=== PATIENT | female | born 1995 | race Caucasian/White ===

== ENCOUNTER 2020-03-22 10:09 | Emergency (ER) | payer MEDICAID ==
[2020-03-22] MEDS ORDERED: MORPHINE SULFATE 2 MG INJ IV ONE (10:41)
[2020-03-22] MEDS ORDERED: Sodium Chloride 0.9% 1000 ML 1,000 ML IV STA (10:41)
[2020-03-22] MEDS ORDERED: Ativan 2 MG/1 ML VIAL IV STA (10:50)
[2020-03-22] MEDS ORDERED: Sodium Chloride 0.9% 1000 ML 1,000 ML ONE (10:51)
[2020-03-22] MEDS ORDERED: Ativan 2 MG/1 ML VIAL ONE (10:51)
[2020-03-22] MEDS ORDERED: MORPHINE SULFATE 2 MG INJ ONE (10:51)
[2020-03-22 10:59] LABS: Absolute Neutrophil Ct (ANC) 5.89 (1.4-6.9); BASOPHIL % 0.4 % (0.0-0.4); Basophil (Absolute #) 0.04 (0-0.4); Eosinophil % 0.2 % (0.00-5.0); Eosinophil (Absolute #) 0.02 (0-0.5); Hematocrit 40.2 % (35-47); Hemoglobin 13.9 gm/dl (12.0-16.0); Lymphocyte (Absolute #) 2.45 (1.0-4.6); Lymphocytes % 26.5 % (24.0-44.0); Mean Cell Volume 90.5 fl (78-100); Mean Corpuscular Hemoglobin 31.3 pg (26-32); Mean Corpuscular Hgb Concent. 34.6 g/dl (32-36); Mean Platelet Volume 9.7 fl (7.5-11.0); Monocyte (Absolute #) 0.84 (0.0-1.3); Monocytes % 9.1 % (0.0-12.0); Neutrophil % 63.8 % (36.0-66.0); Platelet Count 262 K/mm3 (150-450); Red Blood Count 4.44 M/mm3 (4.1-5.4); Red Cell Distribution Width 12.5 % (11.5-14.0); White Blood Count 9.2 K/mm3 (4.0-10.5)
[2020-03-22 11:09] LABS: ALBUMIN 4.8 g/dL (3.5-5.0); ALKALINE PHOSPHATASE 82 U/L (38-126); ANION GAP 14.7 MEQ/L (5-15); BLOOD UREA NITROGEN 18 mg/dL (7-17); CHLORIDE 106 mmol/L (98-107); Calcium 9.7 mg/dL (8.4-10.2); Carbon Dioxide 22 mmol/L (22-30); Creatinine 1 0.87 mg/dL (0.52-1.04); Glucose 92 mg/dL (74-106); Potassium 4.1 mmol/L (3.5-5.1); SGOT/AST 37 U/L (14-36); SGPT/ALT 19 U/L (0-35); SODIUM 139 mmol/L (137-145); Total Protein 8.5 g/dL (6.3-8.2)
[2020-03-22 11:16] VITALS: BP 128/94; PULSE 110; O2SAT 99
--- NOTE | 2020-03-22 11:26 | ERPHSYRPT ---
- History of Present Illness Time Seen by Provider: 03/22/20 10:30 Source: patient Exam Limitations: no limitations Patient Subjective Stated Complaint: PT states "I went to the dr and they told me it was cellulitis, it did not get any better and I went back and a dr told me it was a brown recluse bit and they appologised. Now I am on all these antibiotics and I recently relapsed and I am really freaked out." Triage Nursing Assessment: Pt presented alert and oriented X 3, skin pwd. Pt ambulates with a limp, pt has abscess noted to right hollis. Slight seepage noted. PT crying and anxious. Physician History: Patient is a 24-year-old female who presents to our ED with complaints of wound to her right leg. Patient believes she was bitten by a brown recluse spider several days ago. Patient is on day 2 of antibiotics. She is on Keflex and Bactrim. Patient states the area of cellulitis has spread in spite of being on antibiotics. Her pain is gotten progressively worse as well. Pain described as an ache that is localized with occasional intermittent shooting sensation down into her foot. Tetanus up-to-date. Patient denies systemic manifestation of infection. No fever. No myalgia. No arthralgia. No nausea or vomiting. Symptoms are mild to moderate in intensity. Palpation to the area involvement worsening symptomology. Pain improved with rest. Patient has a history of hepatitis C however is otherwise healthy per patient Patient voices no other complaints at this time. Timing/Duration: day(s) Quality: other (Ache with shooting sensation down her leg.) Severity: moderate (Proximal third of right leg anterior aspect) Possible Causes: insect bite Associated Symptoms: No difficulty breathing, No fever, No headache, No hives, No numbness, No paresthesia, No sore throat Allergies/Adverse Reactions: No Known Drug Allergies Allergy (Unverified 03/22/20 10:24) Home Medications: Cephalexin Mh 500 mg [Keflex 500 mg] 500 mg PO TID 03/22/20 [History] Mupirocin 1 gm TP DAILY 03/22/20 [History] Sulfamethoxazole/Trimethoprim [Bactrim Ds Tablet] 1 each PO BID 03/22/20 [ History] Hx Tetanus, Diphtheria Vaccination/Date Given: No Hx Influenza Vaccination/Date Given: No Hx Pneumococcal Vaccination/Date Given: No Immunizations Up to Date: Yes Travel Risk - International Travel Have you traveled outside of the country in past 3 weeks: No Have you or anyone close to you been diagnosed with or: No Do your reside in a community with a known COVID-19 case?: Yes If Yes where:: [place] - Coronavirus Screening Has patient experienced Coronavirus symptoms: No - Review of Systems Constitutional: No Symptoms, No Fever, No Chills Eyes: No Symptoms Ears, Nose, & Throat: No Symptoms Respiratory: No Symptoms, No Cough, No Dyspnea Cardiac: No Symptoms, No Chest Pain, No Edema, No Syncope Abdominal/Gastrointestinal: No Symptoms, No Abdominal Pain, No Nausea, No Vomiting, No Diarrhea Genitourinary Symptoms: No Symptoms, No Dysuria Musculoskeletal: No Symptoms, No Back Pain, No Neck Pain Skin: No Symptoms, Cellulitis, Induration, No Rash Neurological: No Symptoms, No Dizziness, No Focal Weakness, No Sensory Changes Psychological: No Symptoms Endocrine: No Symptoms Hematologic/Lymphatic: No Symptoms Immunological/Allergic: No Symptoms All Other Systems: Reviewed and Negative - Past Medical History Pertinent Past Medical History: No - Past Surgical History Past Surgical History: Yes Other Surgical History: finger. kidney stones. cyst. laproscopic - Social History Smoking Status: Current every day smoker How long have you smoked: years Exposure to second hand smoke: Yes Drug Use: methamphetamines, heroin Patient Lives Alone: No - Female History Hx Last Menstrual Period: 03/20/2020 Hx Now: No - Nursing Vital Signs Nursing Vital Signs: Initial Vital Signs Temperature 98.4 F 03/22/20 10:15 Pulse Rate 102 H 03/22/20 10:15 Respiratory Rate 22 03/22/20 10:15 Blood Pressure 132/95 03/22/20 10:15 O2 Sat by Pulse Oximetry 97 03/22/20 10:15 Pain Scale Pain Intensity 8 - Physical Exam General Appearance: no apparent distress, alert, other (Patient is very anxious. ) Eye Exam: PERRL/EOMI, eyes nml inspection Ears, Nose, Throat Exam: normal ENT inspection, pharynx normal, moist mucous membranes Neck Exam: normal inspection, non-tender, supple, full range of motion Respiratory Exam: normal breath sounds, lungs clear, No respiratory distress Cardiovascular Exam: regular rate/rhythm, normal heart sounds Gastrointestinal/Abdomen Exam: soft, No tenderness Pelvic Exam: not done Rectal Exam: deferred Back Exam: normal inspection, normal range of motion, No CVA tenderness, No vertebral tenderness Extremity Exam: normal inspection, normal range of motion, other (There is a 7 cm x 7 cm area of cellulitis at the proximal third of her right leg distal to the tibial tuberosity. At the center of the cellulitis is indurated soft tissue with an abscess. No lymphangitis. No inguinal lymphadenopathy. Extremity pulses are palpable bilaterally equal. PT DP pulses are palpable. Extremities neurovascular intact distally. Compartments are soft. Cap refill less than 2 seconds.), No paralysis, No juli's sign Neurologic Exam: alert, oriented x 3, cooperative, normal mood/affect, sensation nml, No motor deficits Skin Exam: normal color, warm, dry SpO2 Interpretation: normal SpO2: 99 O2 Delivery: Room Air Procedures - Incision and Drainage Site: Right leg anterior aspect proximal third distal to the tibial tuberosity. Anesthesia: 1% lidocaine w/epi cc's of anesthesia: 4 Blade Size: 11 I & D Procedure: betadine prep, culture obtained Results: moderate amount pus (Wound was packed with quarter inch iodoform packing. Wound will close by secondary intention. Patient aware that there will be a small scar post wound healing. Patient understands and and accepts this cosmetic outcome.) - Course Nursing assessment & vital signs reviewed: Yes - CT Exams Lower Extremity CT Interpretation: Tele-radiologist Report (No osteomyelitis no fractures no dislocations. Soft tissue defect from incision and drainage abscess observed on x-ray.) Ordered Tests: Active Orders 24 hr Category Date Time Status IV Insertion STAT Care 03/22/20 10:41 Active LOWER LEG Stat Exams 03/22/20 10:48 Ordered CBC W DIFF Stat Lab 03/22/20 10:25 Completed CMP Stat Lab 03/22/20 10:25 Completed CULTURE,WOUND Stat Lab 03/22/20 10:59 Ordered HCG,QUALITATIVE URINE Stat Lab 03/22/20 Uncollected UA W/RFX UR CULTURE Stat Lab 03/22/20 10:42 Uncollected Medication Summary Discontinued Medications Generic Name Dose Route Start Last Admin Trade Name Freq PRN Reason Stop Dose Admin Sodium Chloride 1,000 mls @ 999 mls/hr 03/22/20 10:41 03/22/20 10:52 Sodium Chloride 0.9% 1000 Ml IV 03/22/20 11:41 999 mls/hr .Q1H1M STA Administration Sodium Chloride Confirm 03/22/20 10:51 Sodium Chloride 0.9% 1000 Ml Administered 03/22/20 10:52 Dose 1,000 mls @ ud .ROUTE .STK-MED ONE Lorazepam 0.5 mg 03/22/20 10:50 03/22/20 10:52 Ativan 2 Mg/1 Ml Vial IV 03/22/20 10:51 0.5 mg ONCE STA Administration Lorazepam Confirm 03/22/20 10:51 Ativan 2 Mg/1 Ml Vial Administered 03/22/20 10:52 Dose 2 mg .ROUTE .STK-MED ONE Morphine Sulfate 2 mg 03/22/20 10:41 03/22/20 10:52 Morphine Sulfate 2 Mg Inj IV 03/22/20 10:42 2 mg STAT ONE Administration Morphine Sulfate Confirm 03/22/20 10:51 Morphine Sulfate 2 Mg Inj Administered 03/22/20 10:52 Dose 2 mg .ROUTE .STK-MED ONE Lab/Rad Data: Laboratory Result Diagrams 03/22/20 10:25 03/22/20 10:25 Laboratory Results 03/22/20 03/22/20 Range/Units 10:25 10:25 WBC 9.2 (4.0-10.5) K/mm3 RBC 4.44 (4.1-5.4) M/mm3 Hgb 13.9 (12.0-16.0) gm/dl Hct 40.2 (35-47) % MCV 90.5 (78-100) fl MCH 31.3 (26-32) pg MCHC 34.6 (32-36) g/dl RDW 12.5 (11.5-14.0) % Plt Count 262 (150-450) K/mm3 MPV 9.7 (7.5-11.0) fl Gran % 63.8 (36.0-66.0) % Eos # (Auto) 0.02 (0-0.5) Absolute Lymphs (auto) 2.45 (1.0-4.6) Absolute Monos (auto) 0.84 (0.0-1.3) Lymphocytes % 26.5 (24.0-44.0) % Monocytes % 9.1 (0.0-12.0) % Eosinophils % 0.2 (0.00-5.0) % Basophils % 0.4 (0.0-0.4) % Absolute Granulocytes 5.89 (1.4-6.9) Basophils # 0.04 (0-0.4) Sodium 139 (137-145) mmol/L Potassium 4.1 (3.5-5.1) mmol/L Chloride 106 (98-107) mmol/L Carbon Dioxide 22 (22-30) mmol/L Anion Gap 14.7 (5-15) MEQ/L BUN 18 H (7-17) mg/dL Creatinine 0.87 (0.52-1.04) mg/dL Estimated GFR > 60.0 ML/MIN Glucose 92 (74-106) mg/dL Calcium 9.7 (8.4-10.2) mg/dL Total Bilirubin 0.70 (0.2-1.3) mg/dL AST 37 H (14-36) U/L ALT 19 (0-35) U/L Alkaline Phosphatase 82 (38-126) U/L Serum Total Protein 8.5 H (6.3-8.2) g/dL Albumin 4.8 (3.5-5.0) g/dL - Progress Progress: improved Progress Note: 03/22/20 11:38 Patient reassessed. Pain significantly improved after pain medication administration and incision and drainage. Patient has a general surgery appointment scheduled for tomorrow. They will reevaluate the wound and assess for progression of infection/cellulitis. Patient to continue Keflex and Bactrim as prescribed previously. Patient advised that if symptoms worsen, if she develops systemic manifestation lymphangitis lymphadenopathy or any new or concerning symptomology patient is to return to the ED immediately. Patient neurovascularly intact distally post procedure. Lab work-up essentially nonremarkable. 03/22/20 11:47 Counseled pt/family regarding: lab results, diagnosis, need for follow-up, rad results - Departure Departure Disposition: Home Clinical Impression: Abscess, Cellulitis Condition: Good Critical Care Time: No Referrals: JUSTIN RAMOS [Primary Care Provider] - Additional Instructions: Discharge/Care Plan ARIC ROBLERO was seen on 03/22/20 in the Emergency Room. The patient was counseled regarding Diagnosis,Lab results, Imaging studies, need for follow up and when to return to the Emergency Room. Prescriptions given: Discharge Note I have spoken with the patient and/or caregivers. I have explained the patient' s condition, diagnosis and treatment plan based on the information available to me at this time. I have answered the patient's and/or caregiver's questions and addressed any concerns. The patient and/or caregivers have as good understanding of the patient's diagnosis, condition and treatment plan as can be expected at this point. The vital signs have been stable. The patient's condition is stable and appropriate for discharge from the emergency department. The patient will pursue further outpatient evaluation with the primary care physician or other designated or consulting physician as outlined in the discharge instructions. The patient and/or caregivers are agreeable to this plan of care and follow-up instructions have been explained in detail. The patient and/or caregivers have received these instruction. The patient/and or caregivers are aware that any significant change in condition or worsening of symptoms should prompt an immediate return to this or the closest emergency department or call 911.
--- NOTE | 2020-03-22 11:45 | XRAY ---
Indication: Swelling and erythema following spider bite. Comparison: None 2 view right lower leg demonstrates mild proximal anterior soft tissue swelling with tiny subcutaneous air. No other bony, articular, or soft tissue abnormalities.
[2020-03-22 11:52] LABS: Appearance SLIGHTLY CLOUDY (CLEAR); Bilirubin NEGATIVE (NEGATIVE); Blood NEGATIVE Ery/ul (0-5); Epithelial Cells RARE /HPF (FEW); Glucose NEGATIVE (NEGATIVE); Ketones NEGATIVE (NEGATIVE); Leukocyte Esterase NEGATIVE (NEGATIVE); Mucus SLIGHT /HPF (NEGATIVE); Nitrite NEGATIVE (NEGATIVE); Protein,Urine Dip NEGATIVE (Negative); Specific Gravity 1.025 (1.005-1.025); Urobilinogen NEGATIVE mg/dL (0-1)
== END 2020-03-22 12:03 | disposition home or self-care (01) ==
LOC: ED 10:09
DX: L02.415 Cutaneous abscess of right lower limb (principal)
CPT/HCPCS: 10060; 36000; 36415; 73590; 80053; 81001; 84703; 85025; 87070; 87077; 87186; 96360; 96374; 96375; 99284; J2060; J2270

== ENCOUNTER 2020-03-24 20:31 | Emergency (ER) | payer MEDICAID ==
--- NOTE | 2020-03-24 21:42 | ERPHSYRPT ---
- History of Present Illness Time Seen by Provider: 03/24/20 21:30 Source: patient Exam Limitations: no limitations Patient Subjective Stated Complaint: pt states that she was in the er a couple days ago, pt states that she has packing in her wound to her rt hollis, pt states that she is unable to pull it out, pt states that she has appointment with the surgeon on thursday for a wound check Triage Nursing Assessment: pt ambulated into the er, pt is axo x4, pt is anxoius and nervous, pt is unable to sit still, pt has wound to rt hollis, wound measures 1.5 cm x 0.5 cm, pt has packing coming out of wound, wound is red and warm to the touch, minimal drainage present, wital wnl, c/o pain 3/10 when at rest to RLE Physician History: There is a 24-year-old female who presents to the emergency department for a wound check and dressing change. Patient was seen here on March 22, 2020 for incision and drainage of an abscess. It was caused by a spider bite per the patient. The wound was packed superficially with a piece of gauze. Patient states she is unable to take the gauze out herself and do the dressing change because she is never done it before and it is very painful. Patient states there is been no change in the dressing site. She said it is still as painful as it was before but not worse. Patient has an appointment to see a surgeon for wound check next Thursday. She denies fevers. Timing/Duration: day(s) (2) Quality: painful Severity: mild Location: extremities (Right lower extremity) Associated Symptoms: denies symptoms Allergies/Adverse Reactions: No Known Drug Allergies Allergy (Unverified 03/22/20 10:24) Home Medications: Cephalexin Mh 500 mg [Keflex 500 mg] 500 mg PO TID 03/22/20 [History] Mupirocin 1 gm TP DAILY 03/22/20 [History] Sulfamethoxazole/Trimethoprim [Bactrim Ds Tablet] 1 each PO BID 03/22/20 [ History] Hx Tetanus, Diphtheria Vaccination/Date Given: Yes Hx Influenza Vaccination/Date Given: No Hx Pneumococcal Vaccination/Date Given: No Travel Risk - International Travel Have you traveled outside of the country in past 3 weeks: No Have you or anyone close to you been diagnosed with or: No Do your reside in a community with a known COVID-19 case?: Yes If Yes where:: [place] - Coronavirus Screening Has patient experienced Coronavirus symptoms: No - Review of Systems Constitutional: No Symptoms Eyes: No Symptoms Ears, Nose, & Throat: No Symptoms Respiratory: No Symptoms Cardiac: No Symptoms Abdominal/Gastrointestinal: No Symptoms Genitourinary Symptoms: No Symptoms Musculoskeletal: No Symptoms Skin: No Symptoms Neurological: No Symptoms Psychological: No Symptoms Endocrine: No Symptoms Hematologic/Lymphatic: No Symptoms Immunological/Allergic: No Symptoms All Other Systems: Reviewed and Negative - Past Medical History Pertinent Past Medical History: No Neurological History: No Pertinent History ENT History: No Pertinent History Cardiac History: No Pertinent History Respiratory History: No Pertinent History Endocrine Medical History: No Pertinent History Musculoskeletal History: No Pertinent History GI Medical History: No Pertinent History History: No Pertinent History Psycho-Social History: No Pertinent History Female Reproductive Disorders: Endometriosis, Other Other Medical History: hep c, leisons ovarian cyst, clot disorder - Past Surgical History Past Surgical History: Yes Neuro Surgical History: No Pertinent History Cardiac: No Pertinent History Respiratory: No Pertinent History Gastrointestinal: No Pertinent History Genitourinary: No Pertinent History Musculoskeletal: No Pertinent History Female Surgical History: No Pertinent History Other Surgical History: finger. kidney stones. cyst. laproscopic - Social History Smoking Status: Current every day smoker How long have you smoked: years Exposure to second hand smoke: Yes Drug Use: methamphetamines, heroin Patient Lives Alone: No - Female History Hx Now: No - Nursing Vital Signs Nursing Vital Signs: Initial Vital Signs Temperature 98.3 F 03/24/20 21:17 Pulse Rate 72 03/24/20 21:17 Respiratory Rate 13 03/24/20 21:17 Blood Pressure 102/78 03/24/20 21:17 O2 Sat by Pulse Oximetry 81 L 03/24/20 21:17 Pain Scale Pain Intensity 3 - Physical Exam General Appearance: no apparent distress, alert, anxiety Eye Exam: PERRL/EOMI, eyes nml inspection Ears, Nose, Throat Exam: normal ENT inspection, moist mucous membranes Neck Exam: normal inspection, non-tender, supple, full range of motion Respiratory Exam: airway intact, No chest tenderness, No respiratory distress Gastrointestinal/Abdomen Exam: No tenderness Pelvic Exam: not done Rectal Exam: not done Back Exam: normal inspection, normal range of motion, No CVA tenderness, No vertebral tenderness Extremity Exam: normal range of motion, pelvis stable, tenderness (The 1 cm x 1 cm superficial open wound was evaluated. There is no odor no drainage. The small piece of packing gauze was removed swiftly. 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 I showed her that it was very simple to do. I removed the packing gauze. The nurse replaced it. Patient was encouraged to do this on her own at home. Counseled pt/family regarding: diagnosis, need for follow-up - Departure Departure Disposition: Home Clinical Impression: Visit for wound check, Encounter for change of dressing Condition: Stable Critical Care Time: No Referrals: JUSTIN RAMOS [Primary Care Provider] - Additional Instructions: Change the dressing daily as instructed. Keep your Friday March 27, 2020 appointment with your surgeon for wound check. Continue your antibiotic as prescribed
[2020-03-24 22:02] VITALS: BP 112/59; PULSE 76; O2SAT 98
== END 2020-03-24 22:02 | disposition home or self-care (01) ==
LOC: ED 20:31
DX: Z48.00 Encounter for change or removal of nonsurgical wound dressing (principal); N80.9 Endometriosis, unspecified; B19.20 Unspecified viral hepatitis C without hepatic coma; N83.209 Unspecified ovarian cyst, unspecified side; Z72.0 Tobacco use; F15.90 Other stimulant use, unspecified, uncomplicated; Z87.442 Personal history of urinary calculi; Z87.898 Personal history of other specified conditions
CPT/HCPCS: 99283